=== PATIENT | male | born 1995 | race Hispanic/Latino ===

== ENCOUNTER 2022-08-13 19:46 | Emergency (ER) | payer OTHER, SELFPAY | END 2022-08-13 22:09 | disposition home or self-care (01) | LOC: ERS 19:46 | DX: R07.89 Other chest pain (principal); E11.9 Type 2 diabetes mellitus without complications; I10 Essential (primary) hypertension; F17.290 Nicotine dependence, other tobacco product, uncomplicated | CPT/HCPCS: 71045; 93005 ==